=== PATIENT | male | born 1940 | race Caucasian/White ===

== ENCOUNTER → 2017-09-02 | Outpatient (CLI) | payer OTHER ==
[2015-08-28 15:02] VITALS: BP 152/92
--- NOTE | 2017-09-03 07:16 | RAD ---
HISTORY: Cough Study: Chest PA and lateral Comparison: 01/25/2015 report Findings: There is a pacemaker present on the left. The heart is enlarged. No congestive heart failure is noted . The thoracic aorta is ectatic. The lung carbone are clear. No pleural effusions are identified. The bony thorax is intact. IMPRESSION: Moderate cardiomegaly without congestive heart failure No definite infiltrates Reported By:
== END ==
LOC: RAD 17:14
PROVIDERS: ATTEND Obstetrics & Gynecology Obstetrics
DX: R05 Cough (principal)
CPT/HCPCS: 71046

== ENCOUNTER 2018-02-15 15:07 | Inpatient (IN) ==
[2018-02-15 17:37] LABS: BASOPHILS # (AUTO) 0.1 X10^3/uL (0.0-0.1); BASOPHILS % (AUTO) 0.8 % (0.2-1.0); EOSINOPHILS # (AUTO) 0.3 x10^3/uL (0.0-0.2); EOSINOPHILS % (AUTO) 2.6 % (0.9-2.9); HEMATOCRIT 35.8 % (42.0-54.0); LYMPHOCYTES # (AUTO) 1.4 X10^3/uL (1.3-2.9); LYMPHOCYTES % (AUTO) 14.7 % (21.0-51.0); MEAN CORPUSCULAR HEMOGLOBIN 30.1 pg (27.0-34.0); MEAN CORPUSCULAR HGB CONC 33.5 g/dL (33.0-35.0); MEAN CORPUSCULAR VOLUME 89.7 fL (80.0-100.0); MONOCYTES % (AUTO) 9.7 % (0.0-13.0); NEUTROPHILS # (AUTO) 7.1 x10^3/uL (2.2-4.8); NEUTROPHILS % (AUTO) 72.2 % (42.0-75.0); PLATELET COUNT 208 X10^3/uL (150.0-450.0); RED BLOOD COUNT 3.99 X10^6/uL (4.7-6.0); RED CELL DISTRIBUTION WIDTH 13.9 % (11.6-16.5); WHITE BLOOD COUNT 9.8 X10^3/uL (3.6-10.0)
[2018-02-15] MEDS ORDERED: XOPENEX 1.25 MG/3 ML NEBULE NEB ONE (17:40)
[2018-02-15 17:48] LABS: CALCIUM 8.2 mg/dL (8.5-10.1); CARBON DIOXIDE 26.6 mmol/L (21-32); CREATININE 2.1 mg/dL (0.70-1.30); MAGNESIUM 2.1 mg/dL (1.7-2.9)
--- NOTE | 2018-02-15 17:51 | DR.H&P ---
H&P - History & Physical for Day of: H&P Date: 02/15/18 - Chief Complaint Chief Complaint: SOB, COUGH, WHEEZING - History of Present Illness History of Present Illness: 77 WM DIRECT DIRECT ADMIT FROM DR ENG OFFICE WITH ACUTE BRONCHOPNEUMONIA, CHF, SOB AND WHEEZING. PT HAS HAD ROCEPHIN 1GM IM X2 AND HAS TAKEN 2 ROUNDS OF PO ANTIBIOTICS WITHOUT IMPROVEMENT. PT HAS PMH OF CHF, CAD, DM, OA HTN, BPH, HX CVA. PT ADMITTED FOR TREATMENT OF BRONCHOPNEUMONIA - Past Medical History Past Medical History: Diabetes, Hypertension - Past Surgical History Surgical History: Angioplasty/Stents, CABG/Valve Surgery, Cholecystectomy - Family History Family Medical History: Diabetes Mellitus, [place], Coronary Artery Disease - Social History Does patient currently use any type of tobacco product: No Have you used tobacco products in the last 12 months: No Type of Tobacco Use: None Does any household member use tobacco: No Alcohol Use: None Drug Use: None - Medications Home Medications: MS Penicillin G [Penicillin G] Allergy (Mild, Verified 01/25/15 10:54) MS Albuterol [Albuterol] Allergy (Verified 01/25/15 10:54) MS Morphine [Morphine] Allergy (Verified 01/25/15 11:23) - Review of Systems Constitutional: Fever, Chills, Sweats, Weakness Eyes: No Symptoms Reported ENT: Nose Congestion Respiratory: Shortness of Breath, SOB with Excertion, Wheezing Cardiovascular: Edema Gastrointestinal: Nausea Genitourinary: No Symptoms Reported Musculoskeletal: No Symptoms Reported, Back Pain Skin: No Symptoms Reported Neurological: No Symptoms Reported - Physical Exam Vital Signs: Blood Pressure [Right Arm] 132/78 Blood Pressure 152/92 Oriented: Normal Eyes: Normal Ear: Normal Nose: Normal Throat: Normal Respiratory: Rhonchi Throughout, RLL Diminished, HINA Diminished, LML Diminished, LLL Diminished Cardiovascular: Normal, Edema : Normal Auscultation: Bowel Sounds: Normal Palpation: Normal Tenderness: Normal Skin: Normal Musculoskeletal: Right, Left, Knee, Back:Thoracic, Back:Lumbar Psychiatric: Anxiety Affect: Anxious Speech Pattern: Clear, Appropriate - Assessment/Plan (1) Bronchopneumonia Status: Acute Plan: ADMIT, ICU STEP DOWN. CONTINUOUS O2 MONITORING AND CARDIAC. VERIFY HOME MEDS. PNEUMONIA PROTOCOL, CXR ON ADMISSION, BLOOD AND SPUTUM CULTURE. IV ZITHROMAX AND ROCEPHIN, INR, SSI RESP CONSULT, SUPPLEMENTAL O2 (2) CHF (congestive heart failure) Status: Acute (3) Pacemaker Status: Chronic (4) CAD (coronary artery disease) Status: Chronic (5) Hypertension Status: Chronic (6) Diabetes mellitus Status: Chronic - Allergies Allergies/Adverse Reactions: Allergies Allergy/AdvReac Type Severity Reaction Status Date / Time MS Penicillin G Allergy Mild Verified 01/25/15 10:54 [Penicillin G] MS Albuterol [Albuterol] Allergy Verified 01/25/15 10:54 MS Morphine [Morphine] Allergy Verified 01/25/15 11:23
[2018-02-15 17:53] LABS: ABG HCO3 24.8 mmol/L (22-26); FRACTIONATED INSPIRED OXYGEN 21
[2018-02-15] MEDS: XOPENEX 1.25 MG/3 ML NEBULE NEB SCH ×2 (17:54→20:15)
[2018-02-15] MEDS: PULMICORT NEB TX 0.5 MG NEB SCH ×2 (17:55→20:15)
[2018-02-15] MEDS: NS 1/2 1000 ML IV 1,000 ML IV SCH (18:19)
[2018-02-15] MEDS ORDERED: NS 1/2 1000 ML IV 1,000 ML IV ONE (18:19)
[2018-02-15] MEDS: ROBITUSSIN DM PO SCH ×2 (18:34→21:11)
[2018-02-15] MEDS: ROCEPHIN VIAL 1 GRAM IVP SCH (18:34)
[2018-02-15] MEDS: ZITHROMAX INJ 500 MG VIAL 250 MG in NS 250 ML IV 250 ML IV SCH (18:55)
[2018-02-15] MEDS: SNACK - Diabetic Appropriate PO SCH (21:11)
[2018-02-15] MEDS: COREG TAB 25 MG PO SCH (21:11)
[2018-02-15] MEDS: HumuLIN R SUBCUT PRN (22:30)
[2018-02-16] MEDS ORDERED: CELEXA PO SCH
[2018-02-16] MEDS ORDERED: LANTUS SC SCH
[2018-02-16] MEDS: LIPITOR TAB 40 MG PO SCH ×2 (00:25→20:34)
[2018-02-16] MEDS: CELEXA PO SCH ×3 (00:26→20:35)
[2018-02-16] MEDS: COUMADIN TAB 3 MG PO SCH ×2 (00:26→20:34)
[2018-02-16] MEDS: LANTUS SC SCH ×2 (00:27→21:03)
[2018-02-16] MEDS: MICRO K EXTEN CAP 10 MEQ PO SCH ×3 (00:34→21:53)
[2018-02-16 01:29] VITALS: BMI 36.9
[2018-02-16] MEDS ORDERED: NORCO 5/325 MG TAB PO PRN (02:48)
[2018-02-16] MEDS: ULTRAM PO PRN ×2 (03:40→08:32)
[2018-02-16] MEDS: SYNTHROID 100 mcg TAB PO SCH (06:15)
[2018-02-16 06:22] LABS: BASOPHILS # (AUTO) 0.1 X10^3/uL (0.0-0.1); BASOPHILS % (AUTO) 0.7 % (0.2-1.0); EOSINOPHILS # (AUTO) 0.3 x10^3/uL (0.0-0.2); EOSINOPHILS % (AUTO) 3.7 % (0.9-2.9); HEMATOCRIT 30.2 % (42.0-54.0); HEMOGLOBIN 10.2 g/dL (13.5-18.0); LYMPHOCYTES # (AUTO) 1.7 X10^3/uL (1.3-2.9); LYMPHOCYTES % (AUTO) 18.9 % (21.0-51.0); MEAN CORPUSCULAR HEMOGLOBIN 30.1 pg (27.0-34.0); MEAN CORPUSCULAR HGB CONC 33.8 g/dL (33.0-35.0); MEAN CORPUSCULAR VOLUME 89.1 fL (80.0-100.0); MONOCYTES # (AUTO) 1.2 x10^3/uL (0.3-0.8); MONOCYTES % (AUTO) 13.6 % (0.0-13.0); NEUTROPHILS # (AUTO) 5.6 x10^3/uL (2.2-4.8); NEUTROPHILS % (AUTO) 63.1 % (42.0-75.0); PLATELET COUNT 172 X10^3/uL (150.0-450.0); RED BLOOD COUNT 3.39 X10^6/uL (4.7-6.0); RED CELL DISTRIBUTION WIDTH 13.8 % (11.6-16.5); WHITE BLOOD COUNT 8.9 X10^3/uL (3.6-10.0)
[2018-02-16] MEDS: NS 1/2 1000 ML IV 1,000 ML IV SCH ×2 (06:22→20:33)
[2018-02-16 06:37] LABS: ALBUMIN 2.6 g/dL (3.4-5.0); CALCIUM 7.7 mg/dL (8.5-10.1); CARBON DIOXIDE 27.1 mmol/L (21-32); COR CA(FOR HYPOALB) 8.8 mg/dL (8.5-10.1); CREATININE 1.87 mg/dL (0.70-1.30); TOTAL PROTEIN 6.9 g/dL (6.4-8.2)
[2018-02-16] MEDS: ZITHROMAX INJ 500 MG VIAL 250 MG in NS 250 ML IV 250 ML IV SCH (08:27)
[2018-02-16] MEDS: ROCEPHIN VIAL 1 GRAM IVP SCH (08:28)
[2018-02-16] MEDS: MYSOLINE TAB 250 MG PO SCH (08:28)
[2018-02-16] MEDS: BETAPACE AF PO SCH (08:29)
[2018-02-16] MEDS: COREG TAB 25 MG PO SCH ×2 (08:29→20:34)
[2018-02-16] MEDS: LASIX PO SCH (08:29)
[2018-02-16] MEDS: ROBITUSSIN DM PO SCH ×4 (08:30→20:34)
[2018-02-16] MEDS: ZESTRIL TAB 40 MG PO SCH (08:30)
[2018-02-16] MEDS: PULMICORT NEB TX 0.5 MG NEB SCH ×2 (08:37→20:00)
[2018-02-16] MEDS: XOPENEX 1.25 MG/3 ML NEBULE NEB SCH ×4 (08:37→20:00)
[2018-02-16] MEDS ORDERED: BETAPACE AF PO SCH ×2 (09:00)
[2018-02-16] MEDS: HumuLIN R SUBCUT PRN ×3 (12:16→21:02)
--- NOTE | 2018-02-16 17:09 | PCM.PROG ---
Progress Note - Progress Note for Day of Date of Exam: 02/16/18 - Subjective Subjective: 77 WM ADMITTED ON 02/15 WITH PNEUMONIA. PT CURRENTLY ON IV ROCEPHIN AND ZITHROMAX. PT HAS SPUTUM COLLECTED ON ADMISSION, WITH RESULTS PENDING. PT CONTINUES WITH CO COUGH AND CHEST AND UPPER ABDOMINAL WALL TENDERNESS "FROM COUGHING SO MUCH" PT CONTINUES WITH SPUTUM PRODUCTION - Past Medical Family Social History Past Med/Fam/Surg Hx: No changes since H&P Allergies: Allergies albuterol Allergy (Verified 02/15/18 21:23) morphine Allergy (Verified 02/15/18 21:21) Penicillins Allergy (Verified 02/15/18 21:22) - Review of Systems ROS: No change since H&P - Vital Signs and I&O's Vital Signs: Temperature 98.0 F Pulse Rate [Right Radial] 69 Pulse Rate 69 Respiratory Rate 21 Blood Pressure [Right Arm] 143/69 Blood Pressure 146/65 O2 Sat by Pulse Oximetry 99 Intake and Output: Intake & Output 02/14/18 02/15/18 02/16/18 02/17/18 11:59 11:59 11:59 11:59 Intake Total 1574 / 1574 1064 / 1064 Output Total 400 / 400 400 / 400 Balance 1174 / 1174 664 / 664 - Physical Exam Oriented: Normal Eyes: Normal Ear: Normal Nose: Normal Throat: Normal Respiratory: Diminished, Rhonchi Cardiovascular: Normal, Edema : Normal Auscultation: Bowel Sounds: Normal Tenderness: Normal Skin: Normal Musculoskeletal: Right, Left, Knee, Back:Thoracic, Back:Lumbar Psychiatric: Anxiety Affect: Anxious Speech Pattern: Clear, Appropriate - Laboratory and Diagnostics Result Diagrams: 02/16/18 05:26 02/16/18 05:26 Labs: 02/15/18 17:54 Sputum - Expectorated Sputum - Final Laboratory WBC 8.9 X10^3/uL (3.6-10.0) 02/16/18 05:26 RBC 3.39 X10^6/uL (4.7-6.0) L 02/16/18 05:26 Hgb 10.2 g/dL (13.5-18.0) L 02/16/18 05:26 Hct 30.2 % (42.0-54.0) L 02/16/18 05:26 MCV 89.1 fL (80.0-100.0) 02/16/18 05:26 MCH 30.1 pg (27.0-34.0) 02/16/18 05:26 MCHC 33.8 g/dL (33.0-35.0) 02/16/18 05:26 RDW 13.8 % (11.6-16.5) 02/16/18 05:26 Plt Count 172 X10^3/uL (150.0-450.0) 02/16/18 05:26 MPV 8.0 fL (7.4-11.0) 02/16/18 05:26 Neut % (Auto) 63.1 % (42.0-75.0) 02/16/18 05:26 Lymph % (Auto) 18.9 % (21.0-51.0) L 02/16/18 05:26 [place] % (Auto) 13.6 % (0.0-13.0) H 02/16/18 05:26 Eos % (Auto) 3.7 % (0.9-2.9) H 02/16/18 05:26 Baso % (Auto) 0.7 % (0.2-1.0) 02/16/18 05:26 Neut # (Auto) 5.6 x10^3/uL (2.2-4.8) H 02/16/18 05:26 Lymph # (Auto) 1.7 X10^3/uL (1.3-2.9) 02/16/18 05:26 [place] # (Auto) 1.2 x10^3/uL (0.3-0.8) H 02/16/18 05:26 Eos # (Auto) 0.3 x10^3/uL (0.0-0.2) H 02/16/18 05:26 Baso # (Auto) 0.1 X10^3/uL (0.0-0.1) 02/16/18 05:26 Absolute Nucleated RBC 0.0 /100WBC 02/16/18 05:26 INR Target Range - 02/16/18 05:26 INR 2.28 (0.8-1.3) H 02/16/18 05:26 Sample Site Rbr 02/15/18 17:38 ABG pH 7.400 (7.35-7.45) 02/15/18 17:38 ABG pCO2 40.0 mmHg (35.0-45.0) 02/15/18 17:38 ABG pO2 72.0 mmHg (80.0-100.0) L 02/15/18 17:38 ABG HCO3 24.8 mmol/L (22-26) 02/15/18 17:38 ABG O2 Saturation 94.0 % (90-100) 02/15/18 17:38 ABG Base Excess 0.0 mmol/L (-2.0-2.0) 02/15/18 17:38 Bijan Test N/a 02/15/18 17:38 A-a Gradient 28.0 mmHg 02/15/18 17:38 FiO2 21 02/15/18 17:38 Blood Gas Comments Pt tye well cdn 02/15/18 17:38 Sodium 137 mmol/L (136-145) 02/16/18 05:26 Corrected Sodium 138 mmol/L (136-145) 02/16/18 05:26 Potassium 4.7 mmol/L (3.5-5.1) 02/16/18 05:26 Chloride 103 mmol/L (98-107) 02/16/18 05:26 Carbon Dioxide 27.1 mmol/L (21-32) 02/16/18 05:26 BUN 33 mg/dL (7-18) H 02/16/18 05:26 Creatinine 1.87 mg/dL (0.70-1.30) H 02/16/18 05:26 Est GFR (MDRD) Af Amer 45 (>60) L 02/16/18 05:26 Est GFR (MDRD) Non-Af 37 (>60) L 02/16/18 05:26 Glucose 147 mg/dL (65-99) H 02/16/18 05:26 POC Glucose (mg/dL) 219 mg/dL (65-99) H 02/16/18 16:47 Calcium 7.7 mg/dL (8.5-10.1) L 02/16/18 05:26 Corrected Calcium 8.8 mg/dL (8.5-10.1) 02/16/18 05:26 Magnesium 2.1 mg/dL (1.7-2.9) 10/29/18 17:16 Total Bilirubin 0.30 mg/dL (0.2-1.0) 02/16/18 05:26 AST 61 Units/L (15-37) H 02/16/18 05:26 ALT 50 Units/L (12-78) 02/16/18 05:26 Alkaline Phosphatase 128 Units/L (46-116) H 02/16/18 05:26 Total Protein 6.9 g/dL (6.4-8.2) 02/16/18 05:26 Albumin 2.6 g/dL (3.4-5.0) L 02/16/18 05:26 Globulin 4.3 g/dL (2.5-4.5) 02/16/18 05:26 Albumin/Globulin Ratio 0.6 Ratio (1.1-2.1) L 02/16/18 05:26 - Plan (1) Bronchopneumonia Status: Acute Plan: CONTINUOUS O2 MONITORING AND CARDIAC. AM LABS, STRICT I & OS, CONTINUE LASIX, BB. PNEUMONIA PROTOCOL, CXR Q AM, BLOOD AND SPUTUM CULTURE. IV ZITHROMAX AND ROCEPHIN, INR, SSI RESP THERAPY, SUPPLEMENTAL O2 (2) CHF (congestive heart failure) Status: Acute (3) Pacemaker Status: Chronic (4) CAD (coronary artery disease) Status: Chronic (5) Hypertension Status: Chronic (6) Diabetes mellitus Status: Chronic
[2018-02-16] MEDS: MUCOMYST 20% 200 MG/ML NEB SCH ×2 (19:12→20:00)
[2018-02-16] MEDS: SNACK - Diabetic Appropriate PO SCH (20:33)
[2018-02-17 06:29] LABS: BASOPHILS % (AUTO) 0.4 % (0.2-1.0); EOSINOPHILS # (AUTO) 0.2 x10^3/uL (0.0-0.2); EOSINOPHILS % (AUTO) 1.8 % (0.9-2.9); HEMATOCRIT 32.3 % (42.0-54.0); HEMOGLOBIN 10.9 g/dL (13.5-18.0); LYMPHOCYTES # (AUTO) 1.3 X10^3/uL (1.3-2.9); LYMPHOCYTES % (AUTO) 12.6 % (21.0-51.0); MEAN CORPUSCULAR HGB CONC 33.6 g/dL (33.0-35.0); MEAN CORPUSCULAR VOLUME 89.1 fL (80.0-100.0); MONOCYTES # (AUTO) 1.3 x10^3/uL (0.3-0.8); MONOCYTES % (AUTO) 11.9 % (0.0-13.0); NEUTROPHILS # (AUTO) 7.8 x10^3/uL (2.2-4.8); NEUTROPHILS % (AUTO) 73.3 % (42.0-75.0); PLATELET COUNT 160 X10^3/uL (150.0-450.0); RED BLOOD COUNT 3.63 X10^6/uL (4.7-6.0); RED CELL DISTRIBUTION WIDTH 13.6 % (11.6-16.5); WHITE BLOOD COUNT 10.6 X10^3/uL (3.6-10.0)
[2018-02-17 06:58] LABS: ALBUMIN 2.4 g/dL (3.4-5.0); CALCIUM 8.1 mg/dL (8.5-10.1); COR CA(FOR HYPOALB) 9.4 mg/dL (8.5-10.1); CREATININE 1.79 mg/dL (0.70-1.30); TOTAL PROTEIN 6.9 g/dL (6.4-8.2)
[2018-02-17] MEDS: TUSSIONEX PENNKINETIC SUSP PO PRN ×2 (07:26→23:57)
[2018-02-17] MEDS: ULTRAM PO PRN ×2 (07:26→13:41)
[2018-02-17] MEDS: SYNTHROID 100 mcg TAB PO SCH (07:33)
[2018-02-17] MEDS: LASIX IVP SCH ×2 (08:12→08:28)
[2018-02-17] MEDS: ROCEPHIN VIAL 1 GRAM IVP SCH (08:13)
[2018-02-17] MEDS: ROBITUSSIN DM PO SCH ×4 (08:13→20:01)
[2018-02-17] MEDS: MICRO K EXTEN CAP 10 MEQ PO SCH ×3 (08:13→20:00)
[2018-02-17] MEDS: CELEXA PO SCH ×2 (08:14→20:00)
[2018-02-17] MEDS: COREG TAB 25 MG PO SCH ×2 (08:14→20:00)
[2018-02-17] MEDS: ZESTRIL TAB 40 MG PO SCH (08:14)
[2018-02-17] MEDS: BETAPACE AF PO SCH (08:14)
[2018-02-17] MEDS: LASIX PO SCH (08:15)
[2018-02-17] MEDS: ZITHROMAX INJ 500 MG VIAL 250 MG in NS 250 ML IV 250 ML IV SCH (08:15)
[2018-02-17] MEDS: MYSOLINE TAB 250 MG PO SCH (08:26)
[2018-02-17] MEDS: XOPENEX 1.25 MG/3 ML NEBULE NEB SCH ×4 (09:20→21:57)
[2018-02-17] MEDS: PULMICORT NEB TX 0.5 MG NEB SCH ×2 (09:20→21:57)
[2018-02-17] MEDS: MUCOMYST 20% 200 MG/ML NEB SCH ×4 (09:20→21:57)
[2018-02-17] MEDS ORDERED: NS 1/2 1000 ML IV 1,000 ML IV ONE (11:40)
[2018-02-17] MEDS: NS 1/2 1000 ML IV 1,000 ML IV SCH (12:43)
[2018-02-17] MEDS: HumuLIN R SUBCUT PRN ×3 (12:44→21:38)
[2018-02-17] MEDS ORDERED: LASIX IVP ONE ×2 (16:00→20:00)
[2018-02-17] MEDS ORDERED: CONSULT PHARMACY - ANTIBIOTIC XX SCH (18:00)
--- NOTE | 2018-02-17 18:02 | PCM.PROG ---
Progress Note - Progress Note for Day of Date of Exam: 02/17/18 - Subjective Subjective: 77 WM ADMITTED ON 02/15 WITH PNEUMONIA. PT CURRENTLY ON IV ROCEPHIN AND ZITHROMAX. PT HAS SPUTUM COLLECTED ON ADMISSION, WITH RESULTS PENDING. PT CONTINUES WITH CO COUGH AND CHEST AND UPPER ABDOMINAL WALL TENDERNESS "FROM COUGHING SO MUCH" PT CONTINUES WITH SPUTUM PRODUCTION, SPOUSE STATES PT CO SEVERE CHEST WALL TENDERNESS. PT HAS INCREASED RHONCHI THIS AM. - Past Medical Family Social History Past Med/Fam/Surg Hx: No changes since H&P Allergies: Allergies albuterol Allergy (Verified 02/15/18 21:23) morphine Allergy (Verified 02/15/18 21:21) Penicillins Allergy (Verified 02/15/18 21:22) - Review of Systems ROS: No change since H&P - Vital Signs and I&O's Vital Signs: Temperature 98.8 F Pulse Rate [Right Radial] 69 Pulse Rate 69 Respiratory Rate 23 Blood Pressure [Right Arm] 143/69 Blood Pressure 115/57 O2 Sat by Pulse Oximetry 99 Intake and Output: Intake & Output 02/15/18 02/16/18 02/17/18 02/18/18 11:59 11:59 11:59 11:59 Intake Total 1574 / 1574 2705 / 2705 1230 / 1230 Output Total 400 / 400 1300 / 1300 Balance 1174 / 1174 1405 / 1405 1230 / 1230 - Physical Exam Oriented: Normal Eyes: Normal Ear: Normal Nose: Normal Throat: Normal Respiratory: Diminished, Rhonchi Cardiovascular: Normal, Edema : Normal Auscultation: Bowel Sounds: Normal Tenderness: Normal Skin: Normal Musculoskeletal: Right, Left, Knee, Back:Thoracic, Back:Lumbar Psychiatric: Anxiety Affect: Anxious Speech Pattern: Clear, Appropriate - Laboratory and Diagnostics Result Diagrams: 02/17/18 05:48 02/17/18 05:48 Labs: 02/15/18 17:16 Blood Blood Culture - Preliminary 02/15/18 17:24 Blood Blood Culture - Preliminary 02/15/18 17:54 Sputum - Expectorated Sputum Sputum Culture - Preliminary 02/15/18 17:54 Sputum - Expectorated Sputum - Final Laboratory WBC 10.6 X10^3/uL (3.6-10.0) H 02/17/18 05:48 RBC 3.63 X10^6/uL (4.7-6.0) L 02/17/18 05:48 Hgb 10.9 g/dL (13.5-18.0) L 02/17/18 05:48 Hct 32.3 % (42.0-54.0) L 02/17/18 05:48 MCV 89.1 fL (80.0-100.0) 02/17/18 05:48 MCH 30.0 pg (27.0-34.0) 02/17/18 05:48 MCHC 33.6 g/dL (33.0-35.0) 02/17/18 05:48 RDW 13.6 % (11.6-16.5) 02/17/18 05:48 Plt Count 160 X10^3/uL (150.0-450.0) 02/17/18 05:48 MPV 8.0 fL (7.4-11.0) 02/17/18 05:48 Neut % (Auto) 73.3 % (42.0-75.0) 02/17/18 05:48 Lymph % (Auto) 12.6 % (21.0-51.0) L 02/17/18 05:48 [place] % (Auto) 11.9 % (0.0-13.0) 02/17/18 05:48 Eos % (Auto) 1.8 % (0.9-2.9) 02/17/18 05:48 Baso % (Auto) 0.4 % (0.2-1.0) 02/17/18 05:48 Neut # (Auto) 7.8 x10^3/uL (2.2-4.8) H 02/17/18 05:48 Lymph # (Auto) 1.3 X10^3/uL (1.3-2.9) 02/17/18 05:48 [place] # (Auto) 1.3 x10^3/uL (0.3-0.8) H 02/17/18 05:48 Eos # (Auto) 0.2 x10^3/uL (0.0-0.2) 02/17/18 05:48 Baso # (Auto) 0.0 X10^3/uL (0.0-0.1) 02/17/18 05:48 Absolute Nucleated RBC 0.0 /100WBC 02/17/18 05:48 INR Target Range - 02/17/18 05:48 INR 2.02 (0.8-1.3) H 02/17/18 05:48 Sample Site Rbr 02/15/18 17:38 ABG pH 7.400 (7.35-7.45) 02/15/18 17:38 ABG pCO2 40.0 mmHg (35.0-45.0) 02/15/18 17:38 ABG pO2 72.0 mmHg (80.0-100.0) L 02/15/18 17:38 ABG HCO3 24.8 mmol/L (22-26) 02/15/18 17:38 ABG O2 Saturation 94.0 % (90-100) 02/15/18 17:38 ABG Base Excess 0.0 mmol/L (-2.0-2.0) 02/15/18 17:38 Bijan Test N/a 02/15/18 17:38 A-a Gradient 28.0 mmHg 02/15/18 17:38 FiO2 21 02/15/18 17:38 Blood Gas Comments Pt tye well cdn 02/15/18 17:38 Sodium 133 mmol/L (136-145) L 02/17/18 05:48 Corrected Sodium 134 mmol/L (136-145) L 02/17/18 05:48 Potassium 4.6 mmol/L (3.5-5.1) 02/17/18 05:48 Chloride 100 mmol/L (98-107) 02/17/18 05:48 Carbon Dioxide 23.0 mmol/L (21-32) 02/17/18 05:48 BUN 35 mg/dL (7-18) H 02/17/18 05:48 Creatinine 1.79 mg/dL (0.70-1.30) H 02/17/18 05:48 Est GFR (MDRD) Af Amer 48 (>60) L 02/17/18 05:48 Est GFR (MDRD) Non-Af 39 (>60) L 02/17/18 05:48 Glucose 130 mg/dL (65-99) H 02/17/18 05:48 POC Glucose (mg/dL) 210 mg/dL (65-99) H 02/17/18 15:55 Calcium 8.1 mg/dL (8.5-10.1) L 02/17/18 05:48 Corrected Calcium 9.4 mg/dL (8.5-10.1) 02/17/18 05:48 Magnesium 2.1 mg/dL (1.7-2.9) 02/15/18 17:16 Total Bilirubin 0.40 mg/dL (0.2-1.0) 02/17/18 05:48 AST 50 Units/L (15-37) H 02/17/18 05:48 ALT 48 Units/L (12-78) 02/17/18 05:48 Alkaline Phosphatase 125 Units/L (46-116) H 02/17/18 05:48 Total Protein 6.9 g/dL (6.4-8.2) 02/17/18 05:48 Albumin 2.4 g/dL (3.4-5.0) L 02/17/18 05:48 Globulin 4.5 g/dL (2.5-4.5) 02/17/18 05:48 Albumin/Globulin Ratio 0.5 Ratio (1.1-2.1) L 02/17/18 05:48 - Plan (1) Bronchopneumonia Status: Acute Plan: CONTINUOUS O2 MONITORING AND CARDIAC. AM LABS, STRICT I & OS, CONTINUE LASIX, BB. PNEUMONIA PROTOCOL, CXR Q AM, BLOOD AND SPUTUM CULTURE. IV ZITHROMAX AND ROCEPHIN, INR, SSI RESP THERAPY, SUPPLEMENTAL O2. IMPROVING RENAL FUNCTION, IV LASIX, BROVANA, PULMICORT, JET NEBS (2) CHF (congestive heart failure) Status: Acute (3) Pacemaker Status: Chronic (4) CAD (coronary artery disease) Status: Chronic (5) Hypertension Status: Chronic (6) Diabetes mellitus Status: Chronic
[2018-02-17] MEDS: SOLU-Medrol 40 MG VIAL IVP SCH ×2 (18:14→21:36)
[2018-02-17] MEDS: LIPITOR TAB 40 MG PO SCH (20:00)
[2018-02-17] MEDS: SNACK - Diabetic Appropriate PO SCH (20:01)
[2018-02-17] MEDS: COUMADIN TAB 3 MG PO SCH (20:05)
[2018-02-17] MEDS ORDERED: LASIX IVP SCH ×2 (21:00)
[2018-02-17] MEDS: LANTUS SC SCH (21:37)
[2018-02-17] MEDS ORDERED: LANTUS SC SCH (22:00)
[2018-02-18] MEDS: NS 1/2 1000 ML IV 1,000 ML IV SCH (00:28)
[2018-02-18 05:57] LABS: BASOPHILS % (AUTO) 0.2 % (0.2-1.0); LYMPHOCYTES # (AUTO) 0.5 X10^3/uL (1.3-2.9); LYMPHOCYTES % (AUTO) 6.9 % (21.0-51.0); MEAN CORPUSCULAR HEMOGLOBIN 29.7 pg (27.0-34.0); MEAN CORPUSCULAR HGB CONC 33.5 g/dL (33.0-35.0); MEAN CORPUSCULAR VOLUME 88.8 fL (80.0-100.0); MEAN PLATELET VOLUME 8.2 fL (7.4-11.0); MONOCYTES # (AUTO) 0.2 x10^3/uL (0.3-0.8); MONOCYTES % (AUTO) 1.9 % (0.0-13.0); NEUTROPHILS # (AUTO) 7.2 x10^3/uL (2.2-4.8); PLATELET COUNT 147 X10^3/uL (150.0-450.0); RED BLOOD COUNT 3.72 X10^6/uL (4.7-6.0); RED CELL DISTRIBUTION WIDTH 13.3 % (11.6-16.5); WHITE BLOOD COUNT 7.9 X10^3/uL (3.6-10.0)
[2018-02-18] MEDS ORDERED: DUONEB 0.5 MG/3 MG ONE (05:58)
[2018-02-18 06:23] LABS: ALBUMIN 2.3 g/dL (3.4-5.0); CALCIUM 8.1 mg/dL (8.5-10.1); CARBON DIOXIDE 21.1 mmol/L (21-32); COR CA(FOR HYPOALB) 9.5 mg/dL (8.5-10.1); CREATININE 1.88 mg/dL (0.70-1.30); TOTAL PROTEIN 7.1 g/dL (6.4-8.2)
[2018-02-18] MEDS: HumuLIN R SUBCUT PRN ×4 (06:39→21:11)
[2018-02-18 06:40] LABS: PLATELET MORPHOLOGY COMMENT NORMAL (NORMAL)
[2018-02-18] MEDS: SYNTHROID 100 mcg TAB PO SCH (06:40)
[2018-02-18] MEDS: XOPENEX 1.25 MG/3 ML NEBULE NEB SCH ×4 (08:25→20:28)
[2018-02-18] MEDS: MUCOMYST 20% 200 MG/ML NEB SCH ×4 (08:25→20:29)
[2018-02-18] MEDS: PULMICORT NEB TX 0.5 MG NEB SCH ×2 (08:25→20:29)
[2018-02-18] MEDS: ZITHROMAX INJ 500 MG VIAL 250 MG in NS 250 ML IV 250 ML IV SCH (09:00)
[2018-02-18] MEDS: ROBITUSSIN DM PO SCH ×4 (09:00→21:18)
[2018-02-18] MEDS: MYSOLINE TAB 250 MG PO SCH (09:00)
[2018-02-18] MEDS: BETAPACE AF PO SCH (09:00)
[2018-02-18] MEDS: ZESTRIL TAB 40 MG PO SCH (09:00)
[2018-02-18] MEDS ORDERED: LASIX IVP SCH (09:00)
[2018-02-18] MEDS: COREG TAB 25 MG PO SCH ×2 (09:00→21:14)
[2018-02-18] MEDS: ROCEPHIN VIAL 1 GRAM IVP SCH (09:00)
[2018-02-18] MEDS: CELEXA PO SCH ×2 (09:00→21:14)
[2018-02-18] MEDS: MICRO K EXTEN CAP 10 MEQ PO SCH ×2 (09:00→21:26)
[2018-02-18] MEDS: LASIX IVP SCH ×2 (09:00→21:19)
[2018-02-18] MEDS: LASIX PO SCH (10:19)
[2018-02-18] MEDS ORDERED: FLUVIRIN IM ONE (10:28)
[2018-02-18] MEDS ORDERED: PREVNAR 13 IM ONE ×2 (10:28→13:32)
--- NOTE | 2018-02-18 11:58 | CT ---
CT CHEST WITHOUT IV CONTRAST HISTORY: Pneumonia and shortness of breath Comparison: None Technique: Multiple axial images of the chest were obtained from the thoracic inlet to the upper abdomen. Dose reduction techniques including Automated Exposure Control (AEC) and adjustment of mA and kV were utlized. Findings: The evaluation of the mediastinal structures is diminished without the use of IV contrast. The heart is normal in size. No pericardial effusion. Severe coronary disease. No suspicious mediastinal or axillary lymph nodes. Small focal opacity with air bronchograms at the left lung base.. Airways are patent. No suspicious pulmonary nodules or masses. Limited images of the upper abdomen are unremarkable. No aggressive osseous lesions. IMPRESSION: 1. Small focal opacity at the left lung base which may represent infection in the correct clinical setting. 2. Severe coronary artery disease and moderate emphysema. Reported By:
--- NOTE | 2018-02-18 13:28 | PCM.PROG ---
Progress Note - Progress Note for Day of Date of Exam: 02/18/18 - Subjective Subjective: 77 WM ADMITTED ON 02/15 WITH PNEUMONIA. PT CURRENTLY ON IV ROCEPHIN AND ZITHROMAX. PT HAS SPUTUM COLLECTED ON ADMISSION, SPUTUM +KLEBSIELLA. PT CONTINUES WITH CO COUGH AND CHEST AND UPPER ABDOMINAL WALL TENDERNESS "FROM COUGHING SO MUCH" PT CONTINUES WITH SPUTUM PRODUCTION. SCATTERED RHONCHI IMPROVED. THIS AM. PT HAS JUNIOR CATH PLACED LAST PM FOR STRICT I & OS, PT DIURESED WITH LASIX IV ~2400 URINE OUTPT. PT HAS HYPERGLYCEMIA THIS AM DUE TO IV SOLU MEDROL, CONTINUE WITH INSULIN CONTROL - Past Medical Family Social History Past Med/Fam/Surg Hx: No changes since H&P Allergies: Allergies albuterol Allergy (Verified 02/15/18 21:23) morphine Allergy (Verified 02/15/18 21:21) Penicillins Allergy (Verified 02/15/18 21:22) - Review of Systems ROS: No change since H&P - Vital Signs and I&O's Vital Signs: Temperature 97.1 F Pulse Rate [Right Radial] 69 Pulse Rate 69 Respiratory Rate 28 Blood Pressure [Right Arm] 143/69 Blood Pressure 129/68 O2 Sat by Pulse Oximetry 92 Intake and Output: Intake & Output 02/16/18 02/17/18 02/18/18 02/19/18 11:59 11:59 11:59 11:59 Intake Total 1574 / 1574 2705 / 2705 2970 / 2970 Output Total 400 / 400 1300 / 1300 2300 / 2300 Balance 1174 / 1174 1405 / 1405 670 / 670 - Physical Exam Oriented: Normal Eyes: Normal Ear: Normal Nose: Normal Throat: Normal Respiratory: Diminished, Wheezes, Rhonchi (MILD CENTRAL RHONCHI) Cardiovascular: Normal, Edema : Normal Auscultation: Bowel Sounds: Normal Tenderness: Normal Skin: Normal Musculoskeletal: Right, Left, Knee, Back:Thoracic, Back:Lumbar Psychiatric: Anxiety Affect: Anxious Speech Pattern: Clear, Appropriate - Laboratory and Diagnostics Result Diagrams: 02/18/18 05:12 02/18/18 11:34 Labs: 02/15/18 17:54 Sputum - Expectorated Sputum Sputum Culture - Final Klebsiella Pneumoniae 02/15/18 17:54 Sputum - Expectorated Sputum - Final 02/15/18 17:16 Blood Blood Culture - Preliminary 02/15/18 17:24 Blood Blood Culture - Preliminary Laboratory WBC 7.9 X10^3/uL (3.6-10.0) 02/18/18 05:12 RBC 3.72 X10^6/uL (4.7-6.0) L 02/18/18 05:12 Hgb 11.0 g/dL (13.5-18.0) L 02/18/18 05:12 Hct 33.0 % (42.0-54.0) L 02/18/18 05:12 MCV 88.8 fL (80.0-100.0) 02/18/18 05:12 MCH 29.7 pg (27.0-34.0) 02/18/18 05:12 MCHC 33.5 g/dL (33.0-35.0) 02/18/18 05:12 RDW 13.3 % (11.6-16.5) 02/18/18 05:12 Plt Count 147 X10^3/uL (150.0-450.0) L 02/18/18 05:12 Plt Count Comment Adequate (ADEQUATE) 02/18/18 05:12 MPV 8.2 fL (7.4-11.0) 02/18/18 05:12 Neut % (Auto) 91.0 % (42.0-75.0) H 02/18/18 05:12 Lymph % (Auto) 6.9 % (21.0-51.0) L 02/18/18 05:12 [place] % (Auto) 1.9 % (0.0-13.0) 02/18/18 05:12 Eos % (Auto) 0.0 % (0.9-2.9) L 02/18/18 05:12 Baso % (Auto) 0.2 % (0.2-1.0) 02/18/18 05:12 Neut # (Auto) 7.2 x10^3/uL (2.2-4.8) H 02/18/18 05:12 Lymph # (Auto) 0.5 X10^3/uL (1.3-2.9) L 02/18/18 05:12 [place] # (Auto) 0.2 x10^3/uL (0.3-0.8) L 02/18/18 05:12 Eos # (Auto) 0.0 x10^3/uL (0.0-0.2) 02/18/18 05:12 Baso # (Auto) 0.0 X10^3/uL (0.0-0.1) 02/18/18 05:12 Absolute Nucleated RBC 0.0 /100WBC 02/18/18 05:12 Total Counted 100 02/18/18 05:12 Neutrophils % (Manual) 93 % (39-76) H 02/18/18 05:12 Lymphocytes % (Manual) 6 % (13-43) L 02/18/18 05:12 Monocytes % (Manual) 1 % (4-9) L 02/18/18 05:12 Plt Morphology Comment Normal (NORMAL) 02/18/18 05:12 RBC Morphology Normal (NORMAL) 02/18/18 05:12 INR Target Range - 02/18/18 05:12 INR 2.13 (0.8-1.3) H 02/18/18 05:12 Sample Site Rbr 02/15/18 17:38 ABG pH 7.400 (7.35-7.45) 02/15/18 17:38 ABG pCO2 40.0 mmHg (35.0-45.0) 02/15/18 17:38 ABG pO2 72.0 mmHg (80.0-100.0) L 02/15/18 17:38 ABG HCO3 24.8 mmol/L (22-26) 02/15/18 17:38 ABG O2 Saturation 94.0 % (90-100) 02/15/18 17:38 ABG Base Excess 0.0 mmol/L (-2.0-2.0) 02/15/18 17:38 Bijan Test N/a 02/15/18 17:38 A-a Gradient 28.0 mmHg 02/15/18 17:38 FiO2 21 02/15/18 17:38 Blood Gas Comments Pt tye well cdn 02/15/18 17:38 Sodium 128 mmol/L (136-145) L 02/18/18 05:12 Corrected Sodium 134 mmol/L (136-145) L 02/18/18 05:12 Potassium 4.5 mmol/L (3.5-5.1) 02/18/18 05:12 Chloride 95 mmol/L (98-107) L 02/18/18 05:12 Carbon Dioxide 21.1 mmol/L (21-32) 02/18/18 05:12 BUN 37 mg/dL (7-18) H 02/18/18 05:12 Creatinine 1.88 mg/dL (0.70-1.30) H 02/18/18 05:12 Est GFR (MDRD) Af Amer 45 (>60) L 02/18/18 05:12 Est GFR (MDRD) Non-Af 37 (>60) L 02/18/18 05:12 Glucose 473 mg/dL (65-99) H 02/18/18 11:34 POC Glucose (mg/dL) 452 mg/dL (65-99) H* 02/18/18 11:20 Calcium 8.1 mg/dL (8.5-10.1) L 02/18/18 05:12 Corrected Calcium 9.5 mg/dL (8.5-10.1) 02/18/18 05:12 Magnesium 2.1 mg/dL (1.7-2.9) 02/15/18 17:16 Total Bilirubin 0.30 mg/dL (0.2-1.0) 02/18/18 05:12 AST 55 Units/L (15-37) H 02/18/18 05:12 ALT 55 Units/L (12-78) 02/18/18 05:12 Alkaline Phosphatase 128 Units/L (46-116) H 02/18/18 05:12 Total Protein 7.1 g/dL (6.4-8.2) 02/18/18 05:12 Albumin 2.3 g/dL (3.4-5.0) L 02/18/18 05:12 Globulin 4.8 g/dL (2.5-4.5) H 02/18/18 05:12 Albumin/Globulin Ratio 0.5 Ratio (1.1-2.1) L 02/18/18 05:12 - Plan (1) Bronchopneumonia Status: Acute Plan: CONTINUOUS O2 MONITORING AND CARDIAC. AM LABS, STRICT I & OS, CONTINUE LASIX, BB. PNEUMONIA PROTOCOL, CXR Q AM, BLOOD AND SPUTUM CULTURE +KLEBSIELLA. IV ZITHROMAX AND ROCEPHIN, INR, SSI RESP THERAPY, SUPPLEMENTAL O2 (2) CHF (congestive heart failure) Status: Acute Plan: STRICT I & OS. BP AND LIPID CONTROL, SUPPLEMENTAL O2 (3) Pacemaker Status: Chronic (4) CAD (coronary artery disease) Status: Chronic (5) Hypertension Status: Chronic (6) Diabetes mellitus Status: Chronic
[2018-02-18] MEDS ORDERED: NS 1000 ML 1,000 ML IV SCH (14:00)
[2018-02-18] MEDS: SNACK - Diabetic Appropriate PO SCH (20:00)
[2018-02-18] MEDS: LANTUS SC SCH (21:12)
[2018-02-18] MEDS: LIPITOR TAB 40 MG PO SCH (21:15)
[2018-02-18] MEDS: COUMADIN TAB 3 MG PO SCH (21:17)
[2018-02-19] MEDS: HumuLIN R SUBCUT PRN ×2 (06:07→10:57)
[2018-02-19] MEDS: SYNTHROID 100 mcg TAB PO SCH (06:08)
[2018-02-19 06:59] LABS: ALBUMIN 2.3 g/dL (3.4-5.0); CALCIUM 8.2 mg/dL (8.5-10.1); CARBON DIOXIDE 26.7 mmol/L (21-32); COR CA(FOR HYPOALB) 9.6 mg/dL (8.5-10.1); CREATININE 1.78 mg/dL (0.70-1.30); TOTAL PROTEIN 6.9 g/dL (6.4-8.2)
[2018-02-19] MEDS: ROCEPHIN VIAL 1 GRAM IVP SCH (08:23)
[2018-02-19] MEDS: ROBITUSSIN DM PO SCH (08:24)
[2018-02-19] MEDS: MICRO K EXTEN CAP 10 MEQ PO SCH (08:24)
[2018-02-19] MEDS: BETAPACE AF PO SCH (08:25)
[2018-02-19] MEDS: CELEXA PO SCH (08:25)
[2018-02-19] MEDS: LASIX PO SCH (08:26)
[2018-02-19] MEDS: COREG TAB 25 MG PO SCH (08:26)
[2018-02-19] MEDS: ZESTRIL TAB 40 MG PO SCH (08:26)
[2018-02-19] MEDS: ZITHROMAX INJ 500 MG VIAL 250 MG in NS 250 ML IV 250 ML IV SCH (08:28)
[2018-02-19] MEDS: MYSOLINE TAB 250 MG PO SCH (08:40)
--- NOTE | 2018-02-19 08:56 | RAD ---
History: Shortness of breath Study: Portable AP chest Comparison: February 17 Findings: There is slight elevation of the left hemidiaphragm with persistent subsegmental atelectasis or pneumonitis at the left lung base. The right lung is clear. The heart size is normal with intact pacemaker wire leads via the left subclavian vein. Impression: Persistent left basilar subsegmental atelectasis or consolidation Reported By:
[2018-02-19] MEDS: XOPENEX 1.25 MG/3 ML NEBULE NEB SCH (09:30)
[2018-02-19] MEDS: PULMICORT NEB TX 0.5 MG NEB SCH (09:30)
[2018-02-19] MEDS: MUCOMYST 20% 200 MG/ML NEB SCH (09:30)
[2018-02-19 11:02] VITALS: BP 157/74
== END 2018-02-19 12:00 | disposition home or self-care (01) | DRG 179 ==
LOC: ICU 16:51
PROVIDERS: ADMIT Internal Medicine; ATTEND Internal Medicine
DX: I25.10 Atherosclerotic heart disease of native coronary artery without angina pectoris; M19.90 Unspecified osteoarthritis, unspecified site; J15.0 Pneumonia due to Klebsiella pneumoniae; I11.0 Hypertensive heart disease with heart failure; I50.9 Heart failure, unspecified; Z23 Encounter for immunization; E11.65 Type 2 diabetes mellitus with hyperglycemia; N40.0 Benign prostatic hyperplasia without lower urinary tract symptoms; R26.89 Other abnormalities of gait and mobility; R06.02 Shortness of breath; Z95.0 Presence of cardiac pacemaker
CPT/HCPCS: 36415; 36600; 71010; 71020; 71045; 71046; 71250; 80053; 82803; 82947; 83735; 85025; 85610; 87040; 87070; 87077; 87186; 87205; 94640; 97163; A4222; 90670; J0456; J0696; J1815; J1940; J2920; J7030; J7050; J7608; J7620; J7626